=== PATIENT | female | born 1930 | race Caucasian/White ===

== ENCOUNTER 2018-12-04 12:41 | Emergency (ER) | payer OTHER ==
[~2018-12-04] VITALS: Ht 165.1 cm; Wt 68.0 kg
[2018-12-04] MEDS ORDERED: MYRBETRIQ25 MG PO (13:20)
[2018-12-04] MEDS ORDERED: NORVASC5 MG PO (13:20)
[2018-12-04] MEDS ORDERED: LEXAPRO 10 MG T10 M2 PO (13:21)
[2018-12-04] MEDS ORDERED: SYNTHROID50 MCG PO (13:22)
[2018-12-04 13:47] LABS: ABSOLUTE BASOPHILS 0.1 thou/uL (0.0-0.2); ABSOLUTE EOSINOPHILS 0.2 thou/uL (0.0-0.7); ABSOLUTE LYMPHOCYTES 0.9 thou/uL (0.8-5.3); ABSOLUTE MONOCYTES 0.7 thou/uL (0.0-1.2); ABSOLUTE NEUTROPHILS 4.3 thou/uL (1.6-8.1); BASOPHILS 1.3 %; EOSINOPHILS 2.5 %; HEMATOCRIT 35.8 % (37.0-47.0); HEMOGLOBIN 11.7 gm/dL (12.0-15.0); LYMPHOCYTES 15.2 %; MCH 27.8 pg (26.0-34.0); MCHC 32.6 g/dL (28.0-37.0); MCV 85.2 fL (80.0-100.0); MONOCYTES 10.8 %; MPV 7.3 fl. (7.2-11.1); NUCLEATED RBCS 0 /100WBC; PLATELET COUNT* 271 thou/uL (150-400); POLYS 70.2 %; RBC 4.21 mil/uL (4.20-5.00); RDW-CV 15.4 % (10.5-14.5); WBC 6.1 thou/uL (4.0-11.0)
[2018-12-04 13:56] LABS: ANION GAP 9 mmol/L (7-16); BUN 23 mg/dL (7-18); CALCIUM 8.7 mg/dL (8.5-10.1); CHLORIDE 106 mmol/L (98-107); CO2 26 mmol/L (21-32); CREATININE 1.1 mg/dL (0.6-1.3); GLUCOSE 137 mg/dL (70-99); POTASSIUM 3.6 mmol/L (3.5-5.1); SODIUM 141 mmol/L (136-145)
[2018-12-04 14:03] LABS: ALKALINE PHOSPHATASE 101 U/L (46-116); SGOT 16 U/L (15-37); SGPT 15 U/L (30-65); TOTAL BILIRUBIN 0.2 mg/dL (<0.1-1.0); TOTAL PROTEIN 6.8 g/dL (6.4-8.2); TROPONIN-I LEVEL <0.06 ng/mL (<0.06)
[2018-12-04 15:08] LABS: URINE BILIRUBIN NEGATIVE (Negative); URINE BLOOD NEGATIVE (Negative); URINE CLARITY CLEAR; URINE COLOR YELLOW; URINE GLUCOSE-RANDOM NEGATIVE (Negative); URINE KETONES NEGATIVE (Negative); URINE LEUKOCYTES-REFLEX TRACE (Negative); URINE NITRITE-REFLEX NEGATIVE (Negative); URINE PROTEIN NEGATIVE (Negative); URINE SPECIFIC GRAVITY 1.015 (1.005-1.030); URINE UROBILINOGEN 0.2 E.U./dl (0.2-1.0)
[2018-12-04 15:10] LABS: BACTERIA-REFLEX >30 Many /HPF (None Seen); CASTS None Seen /LPF (None Seen); CRYSTALS None Seen /LPF (None Seen); SQUAMOUS >10 Many /LPF (0-3); URINE RBC 3-10 Few /HPF (0-2); URINE WBC-REFLEX None Seen /HPF (0-5)
[2018-12-04 15:20] VITALS: BP 169/78
--- NOTE | 2018-12-05 10:07 | EKG ---
[place] [address] ELECTROCARDIOGRAM REPORT Name: CALLIE ACUNA Room: [facility]#: [id number] Admission: 12/04/18 Attend Phys: Discharge: 12/04/18 Date of : [birth year] Report #: [id number] THIS REPORT FOR: //name// [facility] ED Test Date: 2018-12-04 Test Time: 13:35:35 Pat Name: CALLIE AUCNA Department: Room: Gender: F Orthopedic Assistant: MS : 1930 Requested By: Aide Wang Order Number: [id number] MD: Carrington Guerrero Measurements Intervals [place] Rate: 62 P: 36 MA: 159 QRS: -19 QRSD: 126 T: 64 QT: 461 QTc: 469 Interpretive Statements Sinus rhythm early transition Nonspecific intraventricular conduction delay Probable lateral infarct, old Baseline wander in lead(s) V3 No previous ECG available for comparison Electronically Signed On 12-05-2018 10:07:26 [employer] by Carrington Guerrero [email or web address] <ELECTRONICALLY SIGNED> By: Carrington Guerrero MD, [facility] 12/05/18 1007 [id number] [id number] Carrington Guerrero MD, [facility] /EPI
== END 2018-12-04 15:51 | disposition home or self-care (01) ==
LOC: M.ERS 12:41
PROVIDERS: Physician Assistant
DX: S05.12XA Contusion of eyeball and orbital tissues, left eye, initial encounter (principal); R07.81 Pleurodynia; I10 Essential (primary) hypertension; F32.9 Major depressive disorder, single episode, unspecified; E07.9 Disorder of thyroid, unspecified; W18.39XA Other fall on same level, initial encounter; Y93.89 Activity, other specified; Y92.89 Other specified places as the place of occurrence of the external cause; Y99.8 Other external cause status